=== PATIENT | female | born 1975 | race Caucasian/White ===

== ENCOUNTER 2017-04-15 07:02 | Emergency (ER) | payer OTHER ==
--- NOTE | 2017-04-15 07:27 | UC ---
Lower Extremity/Ankle HPI - HPI Summary HPI Summary: pt c/o sudden onset of left foot pain beginning at ball of foot across top of foot diagonally to lateral side of 5th metatarsal. Denies injury/trauma. Denies history of gout. c/o of pain with walking. - History of Current Complaint Chief Complaint: UCLowerExtremity Stated Complaint: LEFT FOOT PAIN Time Seen by Provider: 04/15/17 07:09 Hx Obtained From: Patient Hx Last Menstrual Period: 03/09/17 ?: No Onset/Duration: Sudden Onset, Lasting Hours, Still Present Severity Initially: Mild Severity Currently: Mild Aggravating Factor(s): Standing, Ambulation Alleviating Factor(s): Rest, Elevation Able to Bear Weight: Yes - minimal - Risk Factors Gout Risk Factors: Age Over 40, Obesity DVT Risk Factors: Negative Septic Arthritis Risk Factor: Negative - Allergies/Home Medications Allergies/Adverse Reactions: Allergies Allergy/AdvReac Type Severity Reaction Status Date / Time No Known Allergies Allergy Verified 04/15/17 07:09 PMH/Surg Hx/FS Hx/Imm Hx Previously Healthy: Yes - Surgical History Surgical History: Yes Surgery Procedure, Year, and Place: - Family History Known Family History: Positive: Hypertension - Social History Occupation: Employed Full-time Lives: With Family Alcohol Use: Occasionally Substance Use Type: None Smoking Status (MU): Former Smoker Type: Cigarettes Amount Used/How Often: occasional use Length of Time of Smoking/Using Tobacco: 1 yr Have You Smoked in the Last Year: Yes When Did the Patient Quit Smoking/Using Tobacco: DEC 2016 - Immunization History Most Recent Influenza Vaccination: no Vaccination Up to Date: No Review of Systems Skin: Negative Eyes: Negative ENT: Negative Respiratory: Negative Cardiovascular: Negative Gastrointestinal: Negative Genitourinary: Negative Motor: Decreased ROM - secondary to pain left foot big toe and distal foot, Neurovascular: Negative Musculoskeletal: Arthralgia, Myalgia - left foot Neurological: Negative Psychological: Negative Is Patient Immunocompromised?: No All Other Systems Reviewed And Are Negative: Yes Physical Exam Triage Information Reviewed: Yes Appearance: Well-Appearing Vital Signs: Initial Vital Signs Temp 98.3 F 04/15/17 07:11 Pulse 98 04/15/17 07:11 Resp 18 04/15/17 07:11 BP 120/78 04/15/17 07:11 Pulse Ox 96 04/15/17 07:11 Vital Signs Reviewed: Yes Eye Exam: Normal ENT Exam: Normal Dental Exam: Normal Neck exam: Normal Respiratory: Positive: No respiratory distress Musculoskeletal Exam: Other Musculoskeletal: Positive: Other: - tenderness at PIP joint of left great toe and first metatarsal, no erythema, no swelling Neurological Exam: Normal Psychological Exam: Normal Skin Exam: Normal Lower Extremity Course/Dx - Differential Dx/Diagnosis Differential Diagnosis/HQI/PQRI: Bursitis, Gout, Tendonitis Provider Diagnoses: tendinitis left foot Discharge - Discharge Plan Condition: Stable Disposition: HOME Patient Education Materials: Tendinitis (ED) Referrals: Adithya Lewis MD [Medical Doctor] - Aldo Godfrey MD [Primary Care Provider] - If Needed
[2017-04-15 07:29] VITALS: BP 120/78
== END 2017-04-15 08:06 | disposition home or self-care (01) ==
LOC: UCCORT 07:02
DX: M77.52 Other enthesopathy of left foot and ankle (principal); E66.9 Obesity, unspecified; Z87.891 Personal history of nicotine dependence
CPT/HCPCS: 99212; G0463

== ENCOUNTER 2018-02-05 20:29 | Emergency (ER) | payer OTHER ==
[2018-02-05 20:47] VITALS: BP 138/79
--- NOTE | 2018-02-05 20:47 | UC ---
Throat Pain/Nasal Alejandro HPI - HPI Summary HPI Summary: 43 yo female presents with sinus pain/pressure/congestion, dry cough, and chest congestion for the last week. She has been taking sudafed and mucinex with mild relief. Denies fever, chills, SOB - History of Current Complaint Chief Complaint: UCGeneralIllness Stated Complaint: COUGH/CONGESTION Time Seen by Provider: 02/05/18 20:47 Hx Obtained From: Patient Hx Last Menstrual Period: 02/01/18 Onset/Duration: Gradual Onset Pain Intensity: 0 Pain Scale Used: 0-10 Numeric - Allergies/Home Medications Allergies/Adverse Reactions: Allergies Allergy/AdvReac Type Severity Reaction Status Date / Time No Known Allergies Allergy Verified 02/05/18 20:47 Home Medications: Home Medications Lisinopril TAB* [Prinivil TAB*] 10 mg PO BEDTIME 02/05/18 [History Confirmed 03/15] traZODone TAB* [Desyrel TAB*] 50 mg PO BEDTIME 02/05/18 [History Confirmed 02/05] PMH/Surg Hx/FS Hx/Imm Hx Cardiovascular History: Hypertension Psychological History: Anxiety, Depression - Surgical History Surgical History: Yes Surgery Procedure, Year, and Place: - Family History Known Family History: Positive: Hypertension - Social History Occupation: Employed Full-time Lives: With Family Alcohol Use: Rare Substance Use Type: None Smoking Status (MU): Former Smoker Type: Cigarettes Amount Used/How Often: occasional use Length of Time of Smoking/Using Tobacco: 1 yr Have You Smoked in the Last Year: Yes When Did the Patient Quit Smoking/Using Tobacco: DEC 2016 - Immunization History Most Recent Influenza Vaccination: no Vaccination Up to Date: No Review of Systems Constitutional: Negative Skin: Negative Eyes: Negative ENT: Nasal Discharge, Sinus Congestion, Sinus Pain/Tenderness Respiratory: Cough Cardiovascular: Negative Gastrointestinal: Negative Neurological: Negative Psychological: Negative All Other Systems Reviewed And Are Negative: Yes Physical Exam - Summary Physical Exam Summary: GENERAL: NAD. WDWN. No pain distress. SKIN: No rashes, sores, lesions, or open wounds. HEENT: Head: AT/NC Eyes: EOM intact. Conjunctiva clear without inflammation or discharge. Ears: Hearing grossly normal. TMs intact, no bulging, erythema, or edema. Nose: Nasal mucosa mildly swollen and erythematous with yellow discharge. TTP maxillary sinus. NTTP frontal sinus. Throat: Posterior oropharynx without exudates, erythema, or tonsillar enlargement. Uvula midline. NECK: Supple. Nontender. No lymphadenopathy. CHEST: CTAB. No r/r/w. No accessory muscle use. Breathing comfortably and in no distress. CV: RRR. Without m/r/g. Pulses intact. NEURO: Alert. PSYCH: Age appropriate behavior. Triage Information Reviewed: Yes Vital Signs: Initial Vital Signs Temp 98 F 02/05/18 20:40 Pulse 84 02/05/18 20:40 Resp 14 02/05/18 20:40 BP 138/79 02/05/18 20:40 Pulse Ox 99 02/05/18 20:40 Vital Signs Reviewed: Yes Throat Pain/Nasal Course/Dx - Course Course Of Treatment: Sinusitis. Cough - Differential Dx/Diagnosis Provider Diagnoses: Sinusitis. Cough Discharge - Sign-Out/Discharge Documenting (check all that apply): Patient Departure All imaging exams completed and their final reports reviewed: No Studies - Discharge Plan Condition: Stable Disposition: HOME Prescriptions: Azithromycin TAB* [Zithromax TAB (Z-ANAND) 250 mg #6 tabs] 2 tab PO .TODAY, THEN 1 DAILY #1 anand Benzonatate CAP* [Tessalon 100 MG CAP*] 100 mg PO TID PRN #15 cap PRN Reason: Cough Patient Education Materials: Sinusitis (ED) Referrals: Alen Benavidez MD [Primary Care Provider] - Additional Instructions: If you develop a fever, shortness of breath, chest pain, new or worsening symptoms - please call your PCP or go to the ED. Your blood pressure was high at todays visit. Please see your primary provider within 4 weeks for recheck and re-evaluation. - Billing Disposition and Condition Condition: STABLE Disposition: Home
== END 2018-02-05 20:57 | disposition home or self-care (01) ==
LOC: UCCORT 20:29
DX: J32.9 Chronic sinusitis, unspecified (principal); F05 Delirium due to known physiological condition; I10 Essential (primary) hypertension; F41.8 Other specified anxiety disorders; Z87.891 Personal history of nicotine dependence
CPT/HCPCS: 99212; G0463

== ENCOUNTER 2018-08-12 08:26 | Emergency (ER) | payer OTHER ==
--- OUTSIDE RECORDS SUMMARY | 2018-08-12 08:39 | XMS REPORT | Continuity of Care Document ---
:1975 External Reference #:[id number] Author Name Aida Peace CNM Address [address] [place] [address] Care Team Providers Name Role Phone Alen Benavidez Primary Care Physician Unavailable Payers Date Identification Numbers Payment Provider Subscriber Policy Number: [id number] [employer] P[employer] Josette Baker Group Number: [id number] [address] PayID: [id number] [place] [address] Advance Directives Description No Information Available Problems Date Description Provider Status Onset: 12/29/2012 Breast signs and symptoms Ines Hernandez NP Resolved Resolved: 01/10/2016 Family History Date Family Member(s) Observation Comments Father A&W Mother Heart Disease First Daughter A&W Social History Type Date Description Comments Sex Unknown Education Highest level completed, 1 year of college Marital Status Lives With Spouse Lives With Daughter Occupation Process Helper Cigarette Use Former Cigarette Smoker ETOH Use Rarely consumes alcohol Tobacco Use Start: Unknown End: Patient is a former smoker Unknown Recreational Drug Use Does Not Use Drugs Exercise Type/Frequency Exercises rarely Contraceptive Methods Current methods include vasectomy STD's No STD History Allergies, Adverse Reactions, Alerts Description No Known Drug Allergies Medications Medication Date Status Form Strength Qnty SIG Indications Ordering Provider Metronidazole 07/16/ Active Gel 0.75% 45gm insert one Aida 2018 applicator Kobi, (5gm) of gel CNM into the vagina at night for 5 nights Xanax 03/19/ Active Tablets 0.25mg Avis Godfrey 2010 a,M.D. Paxil 00/ Active Tablets 30mg Unknown 0000 Lisinopril / Active Tablets 2.5mg Pt not Unknown 0000 completely sure of name or dosage of medication, thinks this is it Metrogel-Vagina 01/09/ Hx Gel 0.75% 45gram 1 applicator Mona gonzales 2015 - every night Brian, 02/09/ at bedtime x 2015 5 days Paxil / Hx Tablets 20mg Unknown - 2018 Multi-Vitamin / Hx Tablets Unknown - 2015 Plaquenil / Hx Tablets 200mg Unknown 2018 Medications Administered in Office Medication Date Status Form Strength Qnty SIG Indications Ordering Provider PT SCRN Tbco Administered Injection Aida Hickman as Non User 019 PÉREZ Peace Immunizations Description No Information Available Vital Signs Date Vital Result Comment 07/16/2018 3:26pm BP Systolic 120 mmHg BP Diastolic 78 mmHg Height 69 inches 5'9" Weight 245.00 lb BMI (Body Mass Index) 36.2 kg/m2 Last Menstrual Period [id number] 1 Parity 1 01/10/2016 7:39am BP Systolic 122 mmHg BP Diastolic 70 mmHg Height 69 inches 5'9" Weight 228.00 lb BMI (Body Mass Index) 33.7 kg/m2 Last Menstrual Period [id number] 1 Parity 1 12/29/2012 7:48am BP Systolic 108 mmHg BP Diastolic 70 mmHg Weight 169.00 lb Last Menstrual Period [id number] 1 Parity 1 03/19/2011 7:49am BP Systolic 110 mmHg BP Diastolic 72 mmHg Height 67.5 inches 5'7.50" Weight 180.00 lb BMI (Body Mass Index) 27.8 kg/m2 Last Menstrual Period [id number] 1 Parity 1 Results Test Date Facility Test Result H/L Range Note Laboratory test 07/16/2018 [facility] Gardnerella/Ye SEE RESULT [address] [place] [address] ast: Vaginal BELOW [phone] Dna Laboratory test 01/10/2016 [facility] Human Negative N Negative 2, [address] [place] [address] Papilloma [phone] Virus Rna Cytology SEE RESULT BELOW 4 Laboratory test 03/19/2011 [facility] Cytology <SEE [address] [place] [address] NOTE> [phone] 1 SEE RESULT BELOW Name: JOSETTE BAKER : [address]: Aida Peace [facility] Acct: [id number] Unit: [id number] AGE: 43 Location: [facility] Re07/16/18 SEX: F Status: REG REF SPEC: [id number] TYLER: 07/16/[address]: Aida FERRARA REQ: [id number] RECD: 07/17/18 STATUS: COMP _ SOURCE: VAGINAL SPDESC: ORDERED: SantosYeast DNA COMMENTS: [id number] Would you like to order Trichomonas Vaginalis testing? No Procedure Result Reported Site Gardnerella/Yeast: Vaginal DNA Final 07/17/18- 1546 ML Organism 1 Negative Maggy Organism 2 POSITIVE GARDNERELLA The presence of G. vaginalis, although suggestive, is not diagnostic for bacterial vaginosis. Results should be interpreted in conjuction with other clinical and laboratory data available. Women with vaginal discharge should be evaluated for risk factors of cervicitis and pelvic inflammatory disease, toxic shock syndrome (S.aureus), and if present, evaluated for organisms not included in this assay such as N. gonorrhoeae, C. trachomatis, Mobiluncus, Mycoplasma and/or Prevotella. Mixed infections may occur. The performance of this test on patient specimens collected during or immediately after antimicrobial therapy is unknown. The presence or absence of Maggy species, or G. vaginalis cannot be used as a test for therapeutic success or failure. * ML - Main Lab . END OF REPORT DEPARTMENT OF PATHOLOGY, [address] [place] [address] Nathan Forbes M.D. Director [facility] # [id number] 2 [id number] The high-risk HPV types detected by the assay include: 16, 18, 31, 33, 35, 39, 45, 51, 52, 56, 58, 59, 66, and 68. 4 SEE RESULT BELOW Name: JOSETTE LIAO : [address]: Ines Hernandez NP Acct: [id number] Unit: [id number] AGE: 40 Location: [facility] Re01/10/16 SEX: F Status: REG REF SPEC: [id number] TYLER: 01/10/16 [facility] DR: Ines Hernandez NP REQ: [id number] RECD: 01/10/16 STATUS: SOUT _ ORDERED: IMAGE ANALYSIS, HPV/Thin Prep COMMENTS: [id number] FINAL DIAGNOSIS Negative for Intraepithelial lesion or Malignancy Shift in nimo suggestive of bacterial vaginosis A. Ectocervical/Endocervical Specimen Adequacy: Satisfactory of evaluation Transformation zone component identified Patient Information: HPV: High risk HPV RNA testing regardless of pap results. Actual Specimen Date: 01/10/16 Last Menstrual Date: 01/06/16 Date of Last Specimen: 03/19/11 ?: N Date Time Test Result Flag (u) Normal Range 01/10/16 0819 HPV RNA Negative Negative The high-risk HPV types detected by the assay include: 16, 18, 31, 33, 35, 39, 45, 51, 52, 56, 58, 59, 66, and 68. Signed (signature on file) WilbertoKEIRY Bernard (ASCP) 01/11 This Pap test was evaluated with the assistance of the 30 Second ShowcasePrep Test Imaging System. Due to cytologic findings at the airline attendant microscope, comprehensive manual rescreening by a Clinical Safety Specialist may be required. The Pap Smear is a screening test designed to aid in the detection of premalignant and malignant conditions of the uterine cervix. It is not a diagnostic procedure and should not be used as the sole means of detecting cervical cancer. Both false- positive and false- negative reports do occur. Depending on your risk status, a Pap smear should be obtained and evaluated every 1-3 years. END OF REPORT * ML=Testing performed at Main Lab DEPARTMENT OF PATHOLOGY, [address] [place] [address] Nathan Forbes M.D. Director [facility] # [id number] --- [facility]: [facility] TIME: 1443 Specimen Inquiry RUN USER: INTERFACE -- Name: JOSETTE LIAO Status: REG REF Re03/19/11 Age/Sex: 36/F Unit#: [id number] Location: [facility] : [birth year] -- Specimen: [id number] Spec Date: 03/19/[address]: Ines Hernandez NP Spec Type: CYTOLOGY Received: 03/25/11-1256 Copies to: SOURCE ECTOCERVICAL/ENDOCERVICAL Thin Prep with Reflex HPV Test PATIENT INFORMATION ACTUAL COLLECTION DATE: 03/19/11 ? No POST MENOPAUSAL? No LAST MENSTRUAL PERIOD: 03/07/11 PATIENT HISTORY: Prior Elsewhere ADEQUACY OF SPECIMEN Satisfactory for evaluation * Transformation zone component identified * DIAGNOSIS NEGATIVE FOR INTRAEPITHELIAL LESION OR MALIGNANCY * This Pap test was evaluated with the assistance of the ThinPrep Pap Test Imaging System. The Pap Smear is a screening test designed to aid in the detection of premalign ant and malignant conditions of the uterine cervix. It is not a diagnostic procedure a nd should not be used as the sole means of detecting cervical cancer. Both false- positiv e and false-negative reports do occur. Depending on your risk status, a Pap smear carol uld be obtained and evaluated every one to three years. Initial evaluation performed by Jessie AMBROSIO CT([facility]) 03/25/11 Final Interpretation electronically signed by: Jessie AMBROSIO CT([facility]) 03/25/11 1441 -- -- DEPARTMENT OF PATHOLOGY, [address] [place] [address] [facility] Permit #[id number] Homer Baker M.D. Deli Cutter Slicer Dir larkinor -- Procedures Date Code Description Status 04/28/2018 [id number] Mammogram Completed Encounters Type Date Location Provider Dx Diagnosis Office Visit 07/16/2018 [facility] Aida Peace, N76.0 Acute vaginitis 3:40p CNM Office Visit 01/10/2016 [facility] nIes Hernandez NP Z01.419 Encntr for garden center manager exam 8:00a (general) (routine) w/o abn findings Office Visit 12/29/2012 [facility] Ines Hernandez NP 611.79 Breast Signs & 8:00a Symptoms Other Office Visit 03/19/2011 [facility] Ines Hernandez, ACCOUNTING FILE CLERK V72.31 Routine Filter Press Tender 8:00a Examination V76.2 Screening Malignant Neoplasm Cervix Plan of Treatment Future Appointment(s):08/19/2018 8:00 am - BIN Scales at [facility] - Aida Peace, CNMN76.0 Acute vaginitis
[2018-08-12 08:49] VITALS: BP 105/87
--- NOTE | 2018-08-12 09:54 | UC ---
Throat Pain/Nasal Alejandro HPI - HPI Summary HPI Summary: 43-year-old woman comes in with a chief complaint of upper respiratory tract infection symptoms for about 5 days. 7 runny nose mild sore throat postnasal drip. Last couple of days and it's gone down into her chest and she's having occasional wheezing. Reminds her of when she had bronchitis. Patient does not have a history of asthma. She had chills the first couple of days no recent fevers. - History of Current Complaint Chief Complaint: UCGeneralIllness Stated Complaint: COUGH SINUS HEADACHE Time Seen by Provider: 08/12/18 09:46 Hx Last Menstrual Period: 07/2018 Pain Intensity: 4 - Allergies/Home Medications Allergies/Adverse Reactions: Allergies Allergy/AdvReac Type Severity Reaction Status Date / Time No Known Allergies Allergy Verified 08/12/18 08:46 Home Medications: Home Medications Ibuprofen TAB* [Motrin TAB* 600 MG] 600 mg PO Q6H PRN 08/12/18 [History Confirmed 08/12/18] guaiFENesin [Mucinex] 600 mg PO ONCE PRN 08/12/18 [History Confirmed 08/12/18] PMH/Surg Hx/FS Hx/Imm Hx Previously Healthy: Yes Cardiovascular History: Hypertension - Surgical History Surgical History: Yes Surgery Procedure, Year, and Place: - Family History Known Family History: Positive: Hypertension - Social History Alcohol Use: Rare Substance Use Type: None Smoking Status (MU): Former Smoker Type: Cigarettes Amount Used/How Often: occasional use Length of Time of Smoking/Using Tobacco: 1 yr Have You Smoked in the Last Year: Yes When Did the Patient Quit Smoking/Using Tobacco: DEC 2016 - Immunization History Most Recent Influenza Vaccination: no Vaccination Up to Date: No Review of Systems All Other Systems Reviewed And Are Negative: Yes Constitutional: Positive: Chills Skin: Positive: Negative Eyes: Positive: Negative ENT: Positive: Sore Throat, Nasal Discharge, Sinus Congestion Respiratory: Positive: Shortness Of Breath, Cough, Other - SEE HPI Cardiovascular: Positive: Negative Gastrointestinal: Positive: Negative Motor: Positive: Negative Neurovascular: Positive: Negative Musculoskeletal: Positive: Negative Neurological: Positive: Negative Psychological: Positive: Negative Is Patient Immunocompromised?: No Physical Exam Triage Information Reviewed: Yes Appearance: No Pain Distress, Well-Nourished, Ill-Appearing - MILD Vital Signs: Initial Vital Signs Temp 97.8 F 08/12/18 08:47 Pulse 87 08/12/18 08:47 Resp 16 08/12/18 08:47 BP 105/87 08/12/18 08:47 Pulse Ox 98 08/12/18 08:47 Vital Signs Reviewed: Yes Eye Exam: Normal Eyes: Positive: Conjunctiva Clear ENT: Positive: Pharyngeal erythema, Nasal congestion, Nasal drainage, TMs normal Neck exam: Normal Neck: Positive: Supple Respiratory: Positive: Lungs clear, Normal breath sounds, No respiratory distress Cardiovascular Exam: Normal Bowel Sounds: Positive: Present Musculoskeletal Exam: Normal Musculoskeletal: Positive: Strength Intact, ROM Intact Neurological Exam: Normal Neurological: Positive: Alert, Muscle Tone Normal Psychological Exam: Normal Psychological: Positive: Age Appropriate Behavior Skin Exam: Normal Throat Pain/Nasal Course/Dx - Course Course Of Treatment: DISCUSSED VIRAL VERSES BACTERIAL INFECTION AND THE ROLE OF ANTIBIOTICS. THE PATIENT WISHES TO BE ON ANTIBIOTICS AT THIS TIME. - Differential Dx/Diagnosis Provider Diagnosis: Bronchitis with bronchospasm Discharge - Sign-Out/Discharge Documenting (check all that apply): Patient Departure All imaging exams completed and their final reports reviewed: No Studies - Discharge Plan Condition: Stable Disposition: HOME Prescriptions: Albuterol HFA INHALER* [Ventolin HFA Inhaler*] 2 puff INH Q4H PRN #1 mdi PRN Reason: Wheezing Azithromyxin ANAND (NF) [Z-Anand (Zithromax) 250 mg tabs #6] 2 tab PO .TODAY, THEN 1 DAILY #6 tab Patient Education Materials: Acute Bronchitis (ED), Bronchospasm (ED) Forms: *Work Release Referrals: Alen Benavidez MD [Primary Care Provider] - Additional Instructions: FOLLOW UP WITH YOUR DOCTOR IF NOT COMPLETELY IMPROVED. GET REEVALUATED SOONER IF YOUR CONDITION WORSENS OR ANY QUESTIONS OR CONCERNS. - Billing Disposition and Condition Condition: STABLE Disposition: Home
== END 2018-08-12 10:00 | disposition home or self-care (01) ==
LOC: UCCORT 08:26
DX: J20.9 Acute bronchitis, unspecified (principal); F17.210 Nicotine dependence, cigarettes, uncomplicated; I10 Essential (primary) hypertension
CPT/HCPCS: 99212; G0463

== ENCOUNTER 2019-06-19 10:20 | Emergency (ER) | payer OTHER ==
--- NOTE | 2019-06-19 12:10 | UC ---
Upper Extremity HPI - HPI Summary HPI Summary: fell down the stairs yesterday and injured her R wrist. she felt pain and as she woke up today had worsening pain with swelling. nothing makes it better/ worse.. - History of Current Complaint Chief Complaint: UCUpperExtremity Stated Complaint: RIGHT WRIST INJURY S/P FALL Time Seen by Provider: 06/19/19 12:10 Hx Obtained From: Patient Hx Last Menstrual Period: 07/2018 - Allergies/Home Medications Allergies/Adverse Reactions: Allergies Allergy/AdvReac Type Severity Reaction Status Date / Time No Known Allergies Allergy Verified 06/19/19 12:11 Home Medications: Home Medications ALPRAZolam TAB* [Xanax TAB*] 0.25 mg PO BID PRN 02/02/13 [History Confirmed ] PARoxetine HCL TAB* [Paxil TAB*] 30 mg PO BEDTIME 02/02/13 [History Confirmed ] Lisinopril TAB* [Prinivil TAB*] 10 mg PO BEDTIME 02/05/18 [History Confirmed ] Ibuprofen TAB* [Motrin TAB* 600 MG] 600 mg PO Q6H PRN 08/12/18 [History Confirmed 06/19/19] Oxycodone HCl/Acetaminophen [Percocet 5-325 mg Tablet] 1 tab PO Q6HR 5 Days #20 tablet MDD mdd: 4 tabs 06/19/19 [Rx] PMH/Surg Hx/FS Hx/Imm Hx Previously Healthy: Yes Cardiovascular History: Hypertension Psychological History: Depression - Surgical History Surgical History: Yes Surgery Procedure, Year, and Place: - Family History Known Family History: Positive: Hypertension - Social History Alcohol Use: Rare Substance Use Type: None Smoking Status (MU): Former Smoker Type: Cigarettes Amount Used/How Often: occasional use Length of Time of Smoking/Using Tobacco: 1 yr Have You Smoked in the Last Year: Yes When Did the Patient Quit Smoking/Using Tobacco: DEC 2016 - Immunization History Most Recent Influenza Vaccination: no Vaccination Up to Date: No Review of Systems All Other Systems Reviewed And Are Negative: Yes Constitutional: Negative: Fever Skin: Negative: Bruising Motor: Positive: Decreased ROM - R wrist Neurovascular: Negative: Decreased Sensation Musculoskeletal: Positive: Arthralgia - r wrist, Decreased ROM - r wrist, Edema - r wrist Physical Exam Triage Information Reviewed: Yes Appearance: Well-Appearing Vital Signs Reviewed: Yes Respiratory: Positive: No respiratory distress Cardiovascular: Positive: Brisk Capillary Refill - brachial R Musculoskeletal: Positive: ROM Limited @ - R wrists, Edema @ - moderate at R wrist. Neurological: Positive: Alert Skin: Negative: Other - no bruising. Diagnostics - Radiology No standard instances Radiology Interpretation Completed By: Radiologist Summary of Radiographic Findings: IMPRESSION: SMALL DENSITY ALONG THE DORSAL ASPECT OF THE PROXIMAL CARPAL ROW. THE APPEARANCE IS SUGGESTIVE OF DYSTROPHIC CALCIFICATION, THOUGH TRIQUETRAL AVULSION FRACTURES WITHIN THE DIFFERENTIAL. Upper Extremity Course/Dx - Course Course Of Treatment: R wrist pain after fall w/ possible avulsion fracture on imaging today. We were able to stabilize wrist. Minimal swelling on exam and good pulses. She will f/u w/ Ortho within a few days. - Differential Dx/Diagnosis Differential Diagnosis/HQI/PQRI: Fracture (Open), Fracture (Closed), Strain, Sprain, Other Provider Diagnosis: Wrist fracture, right Discharge ED - Sign-Out/Discharge Documenting (check all that apply): Patient Departure All imaging exams completed and their final reports reviewed: Yes - Discharge Plan Condition: Good Disposition: HOME Prescriptions: Oxycodone HCl/Acetaminophen [Percocet 5-325 mg Tablet] 1 tab PO Q6HR 5 Days #20 tablet MDD mdd: 4 tabs Patient Education Materials: Wrist Fracture in Adults (ED) Referrals: Santhosh Portillo MD [Medical Doctor] - Maeve RAIN,Jian Shell [Medical Doctor] - Alicia Damian PA [Physician Children[facility]S Program Coordinator] - Additional Instructions: Please make appt with Ortho within 1-3 days. - Billing Disposition and Condition Condition: GOOD Disposition: Home - Attestation Statements Provider Attestation: Per institutional requirements, I have reviewed the chart, however, I was not consulted specifically or made aware of this patient by the midlevel provider. I did not personally evaluate, interact with, or disposition this patient. EK
[2019-06-19 12:11] VITALS: BP 112/72
== END 2019-06-19 13:07 | disposition home or self-care (01) ==
LOC: UCCORT 10:20
DX: S62.101A Fracture of unspecified carpal bone, right wrist, initial encounter for closed fracture (principal); I10 Essential (primary) hypertension; F32.9 Major depressive disorder, single episode, unspecified; W10.9XXA Fall (on) (from) unspecified stairs and steps, initial encounter; Y92.9 Unspecified place or not applicable; Z79.899 Other long term (current) drug therapy; Z87.891 Personal history of nicotine dependence
CPT/HCPCS: 99212; G0463